=== PATIENT | male | born 1970 | race Caucasian/White ===

== ENCOUNTER 2018-10-18 13:11 | Observation (INO) | payer SELFPAY ==
[~2018-10-18] VITALS: Ht 185.4 cm; Wt 145.2 kg
[2018-10-18 14:15] LABS: Source, Urine Clean Catch
[2018-10-18 14:20] LABS: BASOPHILS ABSOLUTE AUTO 0.05 K/mm3 (0.00-0.23); BASOPHILS PERCENT AUTO 1 % (0-2); EOSINOPHILS ABSOLUTE AUTO 0.25 K/mm3 (0.00-0.68); EOSINOPHILS PERCENT AUTO 3 % (0-6); Hematocrit 47.6 % (37.0-53.0); Hemoglobin 15.2 g/dL (13.5-17.5); IMMATURE GRAN ABSOLUTE AUTO 0.02 K/mm3 (0.00-0.10); IMMATURE GRAN PERCENT AUTO 0 % (0-1); LYMPHOCYTES ABSOLUTE AUTO 1.38 K/mm3 (0.84-5.20); LYMPHOCYTES PERCENT AUTO 19 % (21-46); MONOCYTES PERCENT AUTO 5 % (4-13); Mean Corpuscular HGB 26.9 pg (26.0-34.0); Mean Corpuscular HGB Conc 31.9 g/dL (31.5-36.5); Mean Corpuscular Volume 84 fL (80-100); Mean Platelet Volume 12.2 fL (9.1-12.4); NEUTROPHILS ABSOLUTE AUTO 5.25 K/mm3 (1.96-9.15); NEUTROPHILS PERCENT AUTO 71 % (41-73); Platelet Count 278 K/mm3 (150-400); RDW Coefficient Variation 13.8 % (11.7-14.2); RDW Standard Deviation 42.4 fL (35.1-46.3); Red Blood Cell Count 5.65 M/mm3 (4.30-5.90); White Blood Cell Count 7.35 K/mm3 (4.00-11.30)
[2018-10-18 14:38] LABS: Alanine Aminotransfer (ALT/SGP 33 U/L (12-78); Albumin/Globulin Ratio 1.1 (0.8-1.8); Alk Phos 133 U/L (50-136); Anion Gap 6 mmol/L (6-16); Aspartate Aminotrans (AST/SGOT 13 U/L (12-37); Bilirubin, Total 0.5 mg/dL (0.1-1.0); Blood Urea Nitrogen 11 mg/dL (8-24); Bun/Creatinine Ratio 9.5 (12.0-20.0); CO2, Blood 28 mmol/L (21-32); Calcium, Blood 8.9 mg/dL (8.5-10.1); Chloride, Blood 106 mmol/L (98-108); Creatinine, Blood 1.16 mg/dL (0.60-1.20); Globulin, Blood 3.5 g/dL (2.2-4.0); Glomerular Filtration Rate >60 (60-); Glucose, Blood 135 mg/dL (70-99); Potassium, Blood 3.7 mmol/L (3.5-5.5); Sodium, Blood 140 mmol/L (136-145); Total Protein, Blood 7.5 g/dL (6.4-8.2)
[2018-10-18 14:40] LABS: Bilirubin, Urine Neg (Neg); Blood, Urine 1+ (Neg); Glucose Qualitative, Urine Neg (Neg); Ketones, Urine Neg (Neg); Leukocyte Esterase, Urine Neg (Neg); Nitrite, Urine Neg (Neg); Protein, Urine Neg (Neg); Specific Gravity, Urine 1.015 (1.003-1.022); Urobilinogen, Urine NORM (Normal)
[2018-10-18 14:52] LABS: Appearance, Urine Hazy (Clear); Color, Urine Yellow (P-Yellow)
[2018-10-18 14:54] LABS: Amorphous Heavy (0-Heavy); Bacteria Not Seen /hpf; Mucus Light (0-Heavy); Red Blood Cells, Urine 0-2 /hpf (0-2); Squamous Epithelial Cells Rare /hpf (Few); White Blood Cells, Urine Rare /hpf (0-5)
--- NOTE | 2018-10-18 18:38 | NUR ---
PT ARRIVED TO UNIT FROM ED REPORTS PAIN "VIRTUALLY NONEXISTENT". DENIES NAUSEA AT THIS TIME. LCA. HRR. BTX4. ORIENTED TO ROOM. STARTED IV FLUIDS. CALL LIGHT IN REACH. PROVIDED ORAL SWABS FOR COMFORT.
--- NOTE | 2018-10-19 07:24 | NUR ---
SUMMARY PT SLEPT QUIETLY WITH REQUIRING ONLY 1 DOSE IV PAIN MEDS TONIGHT.ZOFRAN INEFFECTIVE FOR NAUSEA, OWEVER 1 DOSE OF REGLAN ALLOWED PT TO REPORT NAUSEA RESOLVED. IV FLUIDS INFUSING PAS ON AND ACTIVE. VOIDING. VERB UNDERSTANDING OF NPO STATUS FOR POSSIBLE OR TODAY.
--- NOTE | 2018-10-19 13:17 | NUR ---
PT TO OR AT APROX 1314
--- NOTE | 2018-10-19 14:44 | NUR ---
10/19/18 1444 Eddie Kenney PT ON SCHEDULED ANTIBIOTICS AND RECIEVED PRIOR TO ARRIVAL TO OR.
--- NOTE | 2018-10-19 18:41 | NUR ---
SHIFT SUMMARY PT POD 0 LAP RENATO. LAP SITES X'S 3 C/D/I. PAIN MANAGED WITH 2 5/325 NORCO ONCE. TOLERATING REGULAR DIET WITH NO C/O N/V. PLAN IS TO DC HOME TOMORROW IF PT REMAINS STABLE.
--- NOTE | 2018-10-20 04:08 | NUR ---
SUMMARY: PT IS POD1 LAP RENATO. NO ACUTE CHANGE TONIGHT. PT IS A/O, VSS, INDEPENDENT. TOLERATING REG DIET. SURGICAL SITES WNL. NO SAFETY CONCERNS
[2018-10-20] MEDS ORDERED: HYDR1TAB94 PO (14:00)
== END 2018-10-20 14:43 | disposition home or self-care (01) ==
LOC: ER 13:11 → ERHOLD 13:12 → SURS 13:12 → ERHOLD 17:21 → SURS 17:21 → ER 17:21 → SURS 17:21 → ERHOLD 18:20 → SURS 10-20 14:43
PROVIDERS: Physician Assistant; Surgery; ADMIT Surgery
PROC: 0FT44ZZ Resection of Gallbladder, Percutaneous Endoscopic Approach (ICD-10-PCS; principal; 2018-10-19 12:05)
PROC: BF13YZZ Fluoroscopy of Gallbladder and Bile Ducts using Other Contrast (ICD-10-PCS; principal; 2018-10-19 12:05)
DX: K81.0 Acute cholecystitis (principal); I10 Essential (primary) hypertension; E03.9 Hypothyroidism, unspecified; F32.9 Major depressive disorder, single episode, unspecified
CPT/HCPCS: 74177; 74300; 76705; 80053; 81001; 83690; 85025; 88304; 96361; 96374-59; 96375; 99285-25; C1729; G0378; J0295; J1100; J1885; J2250; J2405; J2710; J2765; J3010; J7030; J7120; Q9967

== ENCOUNTER → 2023-04-16 | Outpatient (CLI) | payer OTHER ==
[~2023-04-16] MED LIST: HYDR1TAB94 PO
== END | disposition home or self-care (01) ==
LOC: LAB SHORT 15:42 → LAB 15:42
DX: K21.9 Gastro-esophageal reflux disease without esophagitis (principal)
CPT/HCPCS: 87015; 87045; 87046; 87205; 87899